=== PATIENT | female | born 1975 | race Caucasian/White ===

== ENCOUNTER 2016-11-21 07:15 | Day surgery (SDC) | payer BC ==
[~2016-11-21] VITALS: Ht 157.5 cm; Wt 61.8 kg
[~2016-11-21 07:15] MED LIST: CEPHALEXIN500 M1 PO; DEXILANT60 MG PO; PERCOCET 325 MG1 TA2; PRENATAL VITAMI1 TA5 PO; PREVACID 30MG30 M1 PO
[2016-11-21] MEDS ORDERED: DEXEDRINE SPANS15 M1 (07:29)
[2016-11-21] MEDS ORDERED: DEXEDRINE10 MG (07:30)
[2016-11-21] MEDS ORDERED: ALDACTONE50 MG PO (07:31)
[2016-11-21] MEDS ORDERED: XYREM500 MG/ML PO (07:32)
[2016-11-21 08:02] VITALS: BP 110/83; PULSE 85; TEMP 98.1
[2016-11-21 08:55] VITALS: BP 104/73; PULSE 64; TEMP 97.8
[2016-11-21 09:10] VITALS: BP 105/78; PULSE 70
== END 2016-11-21 09:24 | disposition home or self-care (01) ==
LOC: SDCO 07:15
DX: Z12.11 Encounter for screening for malignant neoplasm of colon (principal); K64.0 First degree hemorrhoids; R19.5 Other fecal abnormalities; Z80.0 Family history of malignant neoplasm of digestive organs; K21.9 Gastro-esophageal reflux disease without esophagitis
CPT/HCPCS: J2250; J3010; J7030

== ENCOUNTER → 2017-08-18 | Outpatient (CLI) | payer BC ==
[~2017-08-18] MED LIST changes: +ALDACTONE50 MG PO; +DEXEDRINE SPANS15 M1; +DEXEDRINE10 MG; +XYREM500 MG/ML PO
== END ==
LOC: MC.RAD 11:20
DX: Z12.31 Encounter for screening mammogram for malignant neoplasm of breast (principal)

== ENCOUNTER → 2020-11-14 | Outpatient (CLI) | payer BC | LOC: MC.RAD 13:00 | DX: N60.02 Solitary cyst of left breast (principal); N63.23 Unspecified lump in the left breast, lower outer quadrant ==

== ENCOUNTER → 2021-04-29 | Outpatient (CLI) | payer BC | LOC: COL.RAD 14:18 | DX: M25.552 Pain in left hip (principal) | CPT/HCPCS: J3301 ==

== ENCOUNTER → 2022-03-11 | Outpatient (CLI) | payer BC | LOC: MHCPAIN 11:15 | DX: M79.18 Myalgia, other site (principal); Q76.49 Other congenital malformations of spine, not associated with scoliosis ==

== ENCOUNTER → 2022-09-03 | Outpatient (CLI) | payer BC | LOC: MHCPAIN 13:54 | DX: M79.18 Myalgia, other site (principal); M79.605 Pain in left leg; R10.2 Pelvic and perineal pain; Z90.711 Acquired absence of uterus with remaining cervical stump | CPT/HCPCS: G0463 ==